=== PATIENT | female | born 2005 | race Two or more races ===

== ENCOUNTER 2025-05-29 07:28 | Emergency (ER) | payer MEDICAID, SELFPAY ==
[2025-05-29 07:39] VITALS: BP 140/86; PULSE 86; RESP 18; TEMP 36.9; O2SAT 99
--- NOTE | 2025-05-29 08:05 | EDRME_ITS ---
Rapid Medical Screening Exam RME Arrival date/time: 05/29/25 07:28 19-year-old female with no known medical history presents to the emergency room with a chief complaint of 10 out of 10 diffuse abdominal pain nausea vomiting x 2 days I have greeted and performed a focused initial assessment of this patient. A co mprehensive ED assessment and evaluation of the patient, analysis of all test results, and completion of the medical decision making process will be conducted by additional ED providers. Chief Complaint: Abdominal Pain Time Seen by Provider: 05/29/25 07:34 Vital signs: Vital Signs Temperature 98.5 F 05/29/25 07:39 Pulse Rate 86 05/29/25 07:39 Respiratory Rate 18 05/29/25 07:39 Blood Pressure 140/86 H 05/29/25 07:39 Pulse Oximetry (%) 99 05/29/25 07:39 Oxygen Delivery Method Room Air 05/29/25 07:39 Vital signs reviewed by provider: Yes
[2025-05-29 08:10] VITALS: BP 133/81; PULSE 85; RESP 24; TEMP 37.2; O2SAT 100
[2025-05-29] MEDS: ONDANSETRON INJ 2 MG/ML INJ 2 ML 4 MG IVP (08:23)
[2025-05-29] MEDS: SODIUM CHLORIDE 0.9% 1000 ML 1,000 ML 999 ML IV ×2 (08:24→09:25)
[2025-05-29 08:40] LABS: Basophils # (Auto) 0.0 Thou/mm3 (0.0-0.2); Basophils % (Auto) 0 % (0-2.5); Eosinophils # (Auto) 0.1 Thou/mm3 (0.0-0.5); Eosinophils % (Auto) 1 % (0-10); Hematocrit 40.2 % (36.0-46.0); Hemoglobin 14.1 g/dL (12.0-16.0); Immature Granulocytes Auto 0.08 Thou/mm3 (0.00-0.00); Lymphocytes # (Auto) 1.8 Thou/mm3 (1.0-4.8); Lymphocytes % (Auto) 11 % (10-50); Mean Corpuscular HGB Conc 35.1 g/dl (31.0-37.0); Mean Corpuscular Hemoglobin 29.2 pg (25.0-35.0); Mean Corpuscular Volume 83 fL (80-100); Monocytes # (Auto) 1.0 Thou/mm3 (0.0-0.8); Monocytes % (Auto) 6 % (0-12); Neutrophils # (Auto) 13.5 Thou/mm3 (1.8-7.7); Neutrophils % (Auto) 82 % (37-80); Nucleated Red Blood Cell # 0.00 Thou/mm3 (0.00-0.00); Nucleated Red Blood Cell % 0 /100 WBC (0); Platelet Count 376 Thou/mm3 (140-440); RDW Standard Deviation 37.6 fL (36.4-46.3); Red Blood Count 4.83 Miln/mm3 (4.00-5.20); White Blood Count 16.5 Thou/mm3 (4.5-11.0)
[2025-05-29 08:58] LABS: Alanine Aminotransferase 15 U/L (10-49); Albumin, Serum 5.0 gm/dL (3.5-5.0); Albumin/Globulin Ratio 2.3 (1.2-2.2); Alkaline Phosphatase 74 U/L (46-116); Anion Gap 17 (7-16); Aspartate Amino Transferase 19 U/L (0-34); BUN/Creatinine Ratio 14 Ratio (12-20); Bilirubin,Total 0.6 mg/dL (0.3-1.2); Blood Urea Nitrogen 11 mg/dL (9-23); Calcium 10.1 mg/dL (8.3-10.6); Calcium (Corrected) 10.1 mg/dL (8.5-10.1); Chloride 111 mMol/L (98-107); Creatinine (Component) 0.8 mg/dL (0.6-1.3); Estimated Creatinine Clearance 100.9 mL/min (>60); Globulin 2.2 gm/dL (2.3-3.5); Glucose 125 mg/dL (74-106); Osmolality,Calculated 279 (275-295); Potassium 3.5 mMol/L (3.4-5.1); Sodium 140 mMol/L (136-145); Total Protein 7.2 gm/dL (5.7-8.2); eGFR > 60 See Note
--- NOTE | 2025-05-29 09:07 | EKG_ITS ---
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
--- NOTE | 2025-05-29 09:11 | XR_ITS ---
Examination: Abdominal series 3 views including AP chest TECHNIQUE: AP portable upright chest, AP upright AP supine abdomen 3 views Date and time: May 29, 2025, 1059 hours INDICATIONS: Abdominal pain and vomiting today. FINDINGS: Normal heart size. Lungs are clear. Nonobstructive bowel gas pattern. No free air. IMPRESSION: Nonobstructive bowel gas pattern
[2025-05-29 09:20] LABS: Carbon Dioxide 12.4 mMol/L (20.0-31.0)
[2025-05-29] MEDS: FAMOTIDINE INJ 10 MG/ML VIAL 2 ML 20 MG IVP (09:26)
--- NOTE | 2025-05-29 10:01 | PD.EDABDPN ---
ED Abdominal Pain RME/HPI General Chief Complaint: Abdominal Pain Stated complaint: STOMACH CRAMPS AND N/V Time seen by provider: 05/29/25 07:34 Arrival date/time: 05/29/25 07:28 Limitations: no limitations RME / HPI RME / HPI narrative: 05/29/25 07:28 19-year-old female with no known medical history presents to the emergency room with a chief complaint of 10 out of 10 diffuse abdominal pain nausea vomiting x 2 days I have greeted and performed a focused initial assessment of this patient. A comprehensive ED assessment and evaluation of the patient, analysis of all test results, and completion of the medical decision making process will be conducted by additional ED providers. DR. JENNINGS MAIN ED EVALUATION: 19 year old female with no stated medical history presents to the ED with acute onset of nausea and vomiting today. States she normally gets nausea and vomiting just before starting her menses, which she began several days ago. Accompanied by diffuse abdominal pain. Denies any fevers, chills, hematemesis, joint/muscle aches, URI symptoms, or sick contacts. Related Data Previous Rx's ?Medication ?Instructions ?Recorded ondansetron 4 mg disintegrating 4 mg PO Q8H PRN nausea and 03/04/24 tablet vomiting #20 tabs ondansetron 4 mg disintegrating 4 mg PO Q8H PRN nausea and 04/09/24 tablet vomiting #14 tabs Allergies Allergy/AdvReac Type Severity Reaction Status Date / Time NKA* Allergy Uncoded 05/29/25 07:29 Review of Systems Review of Systems Systems Reviewed: All systems reviewed, normal except as documented Past Medical History Past Medical History CARDIAC: Negative Cardiac Disorders or Congestive Heart Failure RESPIRATORY: Negative Chronic Obstructive Pulmonary Disease (COPD) or Asthma GENITOURINARY: Negative Renal Disease ENDOCRINE: Negative Diabetes Mellitus Type 1 or Diabetes Mellitus Type 2 HEMATOLOGIC: Negative Sickle Cell Disease Social History SMOKING STATUS: Current every day smoker SUBSTANCE USE: does not use ED Exam General Limitations: Present no limitations General appearance: Present alert and other (appears ill, vomiting continuously in emesis bag) Head Head exam: Present atraumatic, normocephalic and normal inspection Eye Eye exam: Present normal appearance, PERRL and EOMI ENT ENT exam: Present normal exam, normal oropharynx and mucous membranes moist Neck Neck exam: Present normal inspection, full ROM and trachea midline Chest Chest inspection: Present normal inspection and symmetric chest wall rise Respiratory Respiratory exam: Present normal lung sounds bilaterally Cardiovascular Cardiovascular exam: Present regular rate, normal rhythm and normal heart sounds Abdominal Exam Abdominal exam: Present soft and normal bowel sounds Extremities Exam Extremities exam: Present normal inspection and full ROM Back Exam Back exam: Present normal inspection and full ROM Neurological Exam Neurological exam: Present alert, oriented X3 and CN II-XII intact Psychiatric Psychiatric exam: Present normal affect and normal mood Skin Skin exam: Present warm, dry, intact and normal color Course Quality Measures none Orders Category Date Time Status 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 Care 05/29/25 09:07 Active Continuous Pulse Oximetry NOW Care 05/29/25 09:07 Active EKG (ED ONLY) *Do not use* NOW Care 05/29/25 09:07 Completed Insert IV NOW Care 05/29/25 09:07 Active Insert IV STAT Care 05/29/25 08:06 Active EKG (ED Only) Stat Exams 05/29/25 09:07 Draft XR abdomen series w chest 1V Stat Exams 05/29/25 09:11 Completed CBC Stat Lab 05/29/25 08:30 Completed CMP [Comprehensive Metabolic Panel] Stat Lab 05/29/25 08:30 Completed Drug Screen,Urine Stat Lab 05/29/25 08:05 Ordered HCG Qualitative,Urine Stat Lab 05/29/25 07:49 Ordered UA [Urinalysis] Stat Lab 05/29/25 07:49 Ordered Urine Culture Stat Lab 05/29/25 07:49 Ordered Famotidine Inj [Pepcid Inj] Med 05/29/25 09:07 Discontinued 20 mg IVP X1 ONE Ketorolac Inj [Toradol Inj] Med 05/29/25 07:55 Discontinued 30 mg IM X1 ONE Ondansetron Inj [Zofran Inj] Med 05/29/25 08:06 Discontinued 4 mg IVP X1 ONE Pantoprazole Inj [Protonix Inj] Med 05/29/25 09:07 Discontinued 40 mg IVP X1 ONE Promethazine HCl [Phenergan] Med 05/29/25 08:04 Discontinued 25 mg PO X1 ONE Promethazine Inj [Phenergan Inj] Med 05/29/25 08:00 Discontinued 12.5 mg IM X1 ONE Sodium Chloride 0.9% 1000 ml [Ns] 1,000 ml Med 05/29/25 08:07 Discontinued IV 999 mls/hr Sodium Chloride 0.9% 1000 ml [Ns] 1,000 ml Med 05/29/25 09:07 Discontinued IV 999 mls/hr Sterile Water Med 05/29/25 09:30 Discontinued 1.2 ml IM X1 ONE Ziprasidone Inj [Geodon Inj] Med 05/29/25 09:07 Discontinued 20 mg IM X1 ONE Vital Signs Vital signs: Vital Signs Temperature 98.5 F 05/29/25 07:39 Pulse Rate 86 05/29/25 07:39 Respiratory Rate 18 05/29/25 07:39 Blood Pressure 140/86 H 05/29/25 07:39 Pulse Oximetry (%) 99 05/29/25 07:39 Oxygen Delivery Method Room Air 05/29/25 07:39 Pulse ox is 99% on room air which is adequate. Abdominal Pain MDM MDM Narrative MDM Narrative:: Amy He am scribing for and in the presence of Dr. Jennings. Patient data External records reviewed:: [facility] previous records Clinical information provided by:: patient Social determinants that could affect healthcare access:: none Patient has the following chronic illnesses:: None reported How is presenting disease/condition affected by chronic disease/condition?: no chronic disease Evaluation data The following diagnostics were reviewed and interpreted by me:: lab results, radiology exam(s) and EKG tracing(s) (EKG @ 09:30AM Sinus rhythm with short TX interval, rate 90, no acute ischemic changes, no STEMI) Lab and/or radiology exams considered but not ordered:: None Interpretation Summary: Ordering Physician: Jean-Claude Jennings MD Date of Service: 05/29/25 Procedure(s): XR abdomen series w chest 1V Accession Number(s): [id number] cc: Jean-Claude Jennings MD; Maverick Dove MD; Carroll Medrano MD~ Examination: Abdominal series 3 views including AP chest TECHNIQUE: AP portable upright chest, AP upright AP supine abdomen 3 views Date and time: May 29, 2025, 1059 hours INDICATIONS: Abdominal pain and vomiting today. FINDINGS: Normal heart size. Lungs are clear. Nonobstructive bowel gas pattern. No free air. IMPRESSION: Nonobstructive bowel gas pattern Dictated By: Carroll Medrano MD Signed By: <Electronically signed by Carroll Medrano MD in OV> 05/29/25 1117 Medications / Prescriptions Medications or Prescriptions considered but not ordered:: None Medication administrations:: Medication Administration History Discontinued Medications Famotidine (Famotidine Inj 10 Mg/Ml Vial 2 Ml) 20 mg IVP X1 ONE Stop: 05/29/25 09:08 Last Admin: 05/29/25 09:26 Dose: 20 mg Documented By: DO Sodium Chloride (Ns) 1,000 mls @ 999 mls/hr IV .Q1H1M ONE Stop: 05/29/25 09:07 Last Admin: 05/29/25 08:24 Dose: 999 mls/hr Documented By: CS Sodium Chloride (Ns) 1,000 mls @ 999 mls/hr IV .Q1H1M ONE Stop: 05/29/25 10:07 Last Admin: 05/29/25 09:25 Dose: 999 mls/hr Documented By: DO Ketorolac Tromethamine (Ketorolac Inj 60 Mg/2 Ml Vial) 30 mg IM X1 ONE Stop: 05/29/25 07:56 Last Admin: 05/29/25 09:12 Dose: Not Given Documented By: DO Non-Admin Reason: Cancelled by Provider Ondansetron HCl (Ondansetron Inj 2 Mg/Ml Inj 2 Ml) 4 mg IVP X1 ONE; Protocol Stop: 05/29/25 08:07 Last Admin: 05/29/25 08:23 Dose: 4 mg Documented By: KEVIN Pantoprazole Sodium (Pantoprazole Inj 40 Mg Vial) 40 mg IVP X1 ONE Stop: 05/29/25 09:08 Last Admin: 05/29/25 09:26 Dose: 40 mg Documented By: DO Promethazine HCl (Promethazine Inj 25 Mg/Ml Vial) 12.5 mg IM X1 ONE; Protocol Stop: 05/29/25 08:01 Last Admin: 05/29/25 09:12 Dose: Not Given Documented By: DO Non-Admin Reason: Cancelled by Provider Promethazine HCl (Promethazine Hcl 25 Mg Tablet) 25 mg PO X1 ONE Stop: 05/29/25 08:05 Last Admin: 05/29/25 09:29 Dose: Not Given Documented By: CS Non-Admin Reason: Other, see note Comments: pt unable to take po due to n/v Sterile Water (Water, Sterile Inj 10 Ml Vial) 1.2 ml IM X1 ONE Stop: 05/29/25 09:31 Last Admin: 05/29/25 10:02 Dose: 1.2 ml Documented By: KEVIN Ziprasidone (Ziprasidone Inj 20 Mg/Ml Vial (Non-Formulary)) 20 mg IM X1 ONE Stop: 05/29/25 09:08 Last Admin: 05/29/25 10:02 Dose: 20 mg Documented By: KEVIN See above Consultations Consultation(s) initiated? (list below): No Diagnosis Differential diagnosis abdominal pain: abdominal pain, gastroenteritis and other (nausea, vomiting, cannabinoid hyperemesis, gastroparesis) Most likely diagnosis given after review of the tests above:: Gastroparesis Admission Indicated Admission indicated?: not indicated Admission Request Was there a request for admission?: No Disposition Plan Disposition Plan: Discharge Discharge Attestation Discharge Attestation: The patient and all family members were given an opportunity to ask questions and understood the discharge instructions. Discharge instructions specifically effects, indications for sooner follow up or return to the emergency department, and the expected course of current diagnosis. Patient condition: Stable Discharge Plan Plan Patient Disposition: HOME (Self Care) Prescriptions/Referrals Prescriptions/Med Rec: No Action ondansetron 4 mg tablet,disintegrating 4 mg PO Q8H PRN (Reason: nausea and vomiting) Qty: 20 0RF ondansetron 4 mg tablet,disintegrating 4 mg PO Q8H PRN (Reason: nausea and vomiting) Qty: 14 0RF Referrals: Maverick Dove MD [Primary Care Provider, Family Practice] - In 1 week Problem List Clinical Impression: Gastroparesis Patient/Caregiver Discharge Instructions Discharge Activity: activity as tolerated Additional Instructions: Take usual medications. Follow-up with your doctor in 3 to 4 days. Eat a bland diet for a few days and then advance her diet as tolerated. Consider discussing gastroenterology referral with your primary care doctor. Print Language: Maltese Stand Alone Forms: [employer] Info., Patient Portal Info Letter
[2025-05-29] MEDS: WATER, STERILE INJ 10 ML VIAL 1.2 ML IM (10:02)
[2025-05-29] MEDS: ZIPRASIDONE INJ 20 MG/ML VIAL (NON-FORMULARY) IM (10:02)
[2025-05-29 10:10] VITALS: BP 133/81; PULSE 89; RESP 18; TEMP 37; O2SAT 100
--- NOTE | 2025-05-29 10:24 | PC.NURSE ---
PT comes in from home complaining of n/v and severe lower abdominal pain x2 days. States that this tends to happen around the time of her period every month. Pt states that she is a daily marijuana smoker, denies any other substance abuse
[2025-05-29 12:15] LABS: Collection Type, Urine Clean Catch
[2025-05-29 12:34] LABS: Bilirubin,Urine Negative (Negative); Blood,Urine 3+ (Negative); Clarity,Urine Clear (Clear/Hazy); Color,Urine Colorless (Lt Yel-Yel); Glucose, Urine Trace (Negative); Ketones,Urine 1+ (Negative); Leukocyte Esterase,Urine Negative (Negative); Nitrite,Urine Negative (Negative); PH,Urine 6.0 (5.0-7.0); Protein,Urine Negative (Neg - Trace); RBC,Urine 2 /hpf (0-3); Specific Gravity,Urine 1.011 (1.001-1.035); Squamous Epithelial Cell,Urine 1 /hpf (0-5); Urobilinogen,Urine Negative mg/dL (0.0-1.0); WBC,Urine 1 /hpf (0-5)
[2025-05-29 12:46] LABS: Amphetamine/Methamp Scrn,U Negative (Negative); Barbiturate Screen,Urine Negative (Negative); Benzodiazepines Screen,Urine Negative (Negative); Benzoylecgonine Screen, Ur Negative (Negative); Fentanyl Screen,Urine Negative (Negative); Opiate Screen,Urine Negative (Negative); THC Screen,Urine Positive (Negative)
[2025-05-29 12:51] LABS: HCG Qualitative,Urine Negative
== END 2025-05-29 12:22 | disposition home or self-care (01) ==
PROVIDERS: Nurse Practitioner Family; Emergency Provider Family Medicine; PCP Family Medicine
DX: K31.84 Gastroparesis (principal); I49.8 Other specified cardiac arrhythmias
CPT/HCPCS: 36415; 74022; 80053; 80307; 81001; 81025; 85025; 87086; 93005; 99284; A4216; J2405; J2470; J3486; J3490; J7030; A9270